=== PATIENT | male | born 1990 | race Caucasian/White ===

== ENCOUNTER 2021-01-20 21:09 | Emergency (ER) | payer OTHER, SELFPAY ==
[2021-01-20 21:14] VITALS: BP 159/84; PULSE 82; RESP 18; TEMP 37.7; O2SAT 97; BMI 28.1
--- NOTE | 2021-01-20 23:13 | ED.EYEPROB ---
HPI - Eye Problem General Chief complaint: Eye Problems Stated complaint: FB object in left eye Time Seen by Provider: 01/20/21 23:13 Source: patient Mode of arrival: ambulatory Limitations: no limitations History of Present Illness HPI Narrative: Patient grinding on we will 3 days ago small part of metal went to the left eye complaining of foreign body sensations in the left eye with watering slight redness Related Data Previous Rx's Medication Instructions Recorded tobramycin 1 drp OPHTHALMIC-LEFT Q4H #5 ml 01/21/21 Allergies Allergy/AdvReac Type Severity Reaction Status Date / Time No Known Allergies Allergy Verified 01/20/21 21:18 Review of Systems Review of Systems: Yes all other systems are reviewed and are negative PMFSH Past Medical History Medical History No acute medical problems Surgical History No history of previous surgery Social History Social History Smoked in Last 30 Days: No Use of substances other than those prescribed or required for medical reasons: No Advance Directives: No Advance Directives Information Provided: No Physical Exam Vital Signs: Vital Signs: Last Vital Signs Temp 100.0 F 01/20/21 23:37 Pulse 83 01/20/21 23:37 Resp 18 01/20/21 23:37 BP 151/85 H 01/20/21 23:37 Pulse Ox 98 01/20/21 23:37 Body Mass Index 28.1 Const: General: comfortable and no acute distress Orientation/consciousness: patient oriented x3 HENMT: Head: Yes normocephalic Eyes: Eyelids: Yes eyelids normal Conjunctivae: conjunctivae normal Sclerae: sclerae normal Corneas: fluorescein used (03:00 o'clock fluorescein uptake on left side after foreign body removal) EOM: EOMs intact bilaterally Direct Ophthalmoscopy: fundi normal bilaterally Eyes/upper lids images: 1. metal dust at 3 o'clock Neuro: General: patient oriented x3 Procedures FB Removal Eye Time Out performed: Yes Location: eye (L) Topical anesthetic used: tetracaine Foreign body: metal Evidence of corneal penetration: Yes Technique: needle Procedure performed under: direct visualization with magnification Post-procedure medication: ophthalmic antibiotic and topical anesthetic Patient tolerated procedure: well MDM - Eye Problem MDM Narrative Medical decision making narrative: Small piece of metal dust removed completely from left cornea at 03:00 o'clock patient feels much better no stain left will discharge patient home Discharge Plan Discharge Clinical Impression: Foreign body in cornea, left eye, initial encounter Patient Disposition: Home, Self-Care Instructions: Eye Foreign Body (ED) Additional Instructions: Local care as advised. Use protective eye shield while working. Antibiotic eyedrops to avoid infection 1 drop every 4-6 hours till heels completely Prescriptions: New tobramycin 0.3 % drops 1 drp ophthalmic-Left Q4H Qty: 5 RF: 0 Interventions: ED Discharge Assessment Last Done: 01/21/21 00:39
[2021-01-20 23:37] VITALS: BP 151/85; PULSE 83; RESP 18; TEMP 37.8; O2SAT 98
[2021-01-20] MEDS: Tetracaine HCl/PF 0.5% Oph Sol 4 ML DROPS 3 DROP EYE-LEFT (23:41)
--- NOTE | 2021-01-20 23:45 | PC.NURSE ---
pt a&o , sob or chest pain. pt report irritation to left eye. left eye is pink and inflamed. pt reports of blurry vision. medicated per mar. provider into assess pt.
[2021-01-20] MEDS: Fluorescein Sodium STRIP 1 STRIP EYE-LEFT (23:55)
[2021-01-20] MEDS: Tobramycin Sulfate 0.3% Sol Op 5 ML BTL 2 DROP EYE-LEFT (23:55)
--- NOTE | 2021-01-21 00:38 | PC.NURSE ---
per provider no eye acuity test needed. Will discharge pt per order.
== END 2021-01-21 00:50 | disposition home or self-care (01) ==
PROVIDERS: Emergency Provider Internal Medicine; PCP Family Medicine
DX: T15.02XA Foreign body in cornea, left eye, initial encounter (principal); W45.8XXA Other foreign body or object entering through skin, initial encounter; Y93.89 Activity, other specified; Y92.019 Unspecified place in single-family (private) house as the place of occurrence of the external cause; Y99.9 Unspecified external cause status
CPT/HCPCS: 65220; 99284